=== PATIENT | male | born 1975 | race Caucasian/White ===

== ENCOUNTER → 2024-11-21 | Outpatient (CLI) | payer OTHER, SELFPAY ==
--- NOTE | 2024-11-21 06:48 | CT_ITS ---
PROCEDURE: CT CHEST WITH CONTRAST REASON FOR EXAM: Shortness of breath. Tracheal stenosis. TECHNIQUE: Contiguous axial scans of 2.5 mm slice thicknesses. Sagittal and coronal reconstruction images were obtained. One or more dose reduction techniques were used (e.g., automated exposure control, adjustment of mA and/or kv according to patient size, use of iterative reconstruction technique). IV contrast: Isovue 370. Amount injected: 99 mL. COMPARISON: No relevant prior FINDINGS: Hardware: None. Lymph nodes: No mediastinal hilar or axillary lymphadenopathy. Heart and Vasculature: Normal heart size. No pericardial effusion. Thoracic aorta and pulmonary arteries are unremarkable. Lungs and Airways: The lungs are normally expanded and clear. Pleura: No pleural effusion. No pneumothorax. Upper Abdomen: Visualized portions of the upper abdominal viscera are unremarkable. A lucent defect is seen in the portal vein. Bones: Bone windows are unremarkable. CT/Chest WITH Contrast IMPRESSION: 1. Unremarkable computed tomography of the chest. 2. Lucent portal vein defect most likely related to admixture of contrast mate rial and normal blood flow. Clinical correlation recommended. Ultrasound may be helpful for further evaluation if indicated. Reading Location: [facility]
[2024-11-21 07:15] LABS: CREATININE FINGERSTICK < 1.0 mg/dL (0.70-1.30); EGFR FINGERSTICK > 60.0000 mL/min (>60)
== END | disposition home or self-care (01) ==
LOC: CT 06:46
PROVIDERS: Referring Provider Otolaryngology; Visit Provider Otolaryngology
DX: R06.02 Shortness of breath (principal)
CPT/HCPCS: 71260; Q9967

== ENCOUNTER → 2025-01-24 | Outpatient (CLI) | payer OTHER, SELFPAY ==
[2025-01-24 10:42] LABS: Absolute Lymphocyte Count 2.93 X10^3/uL (0.83-4.51); Absolute Neutrophil Count 4.3 X10^3/uL (2.0-7.7); Basophil# 0.08 X10^3/uL; Eosinophil# 0.23 X10^3/uL; Eosinophils% 2.8 % (0-5); Hematocrit 49.9 % (40-54); Hemoglobin 17.7 g/dL (13.0-16.5); Lymphocyte # 2.93 X10^3/ul (0.83-4.51); Mean Corp Hgb Conc 35.5 g/dL (32-36); Mean Corpuscular Hgb 30.1 pg (27.0-32.0); Mean Corpuscular Volume 84.7 fL (80-94); Mean Platelet Vol. 10.3 fl (6.2-12.0); Monocyte# 0.57 X10^3/uL; NRBC Flagged by Analyzer 0 % (0-5); Neutrophil # 4.26 X10^3/uL (2.7-7.7); Neutrophil % 52.5 % (47-70); Platelet Count 280 K/mm3 (150-450); RBC Distribution Width CV 13.3 % (11.6-14.6); Red Blood Count 5.89 M/mm3 (4.6-6.2); White Blood Count 8.1 K/mm3 (4.4-11.0)
== END | disposition home or self-care (01) ==
LOC: PAVLAB 10:22
PROVIDERS: Referring Provider Internal Medicine Critical Care Medicine; Visit Provider Internal Medicine Critical Care Medicine
DX: R06.02 Shortness of breath (principal); R05.3 Chronic cough
CPT/HCPCS: 36415; 82785; 85025; 86003

== ENCOUNTER → 2025-02-07 | Outpatient (CLI) | payer OTHER, SELFPAY ==
[2025-02-07] MEDS: Methacholine Chloride 18 ml neb kit INHALATION (07:11)
[2025-02-07 08:00] VITALS: PULSE 104; PULSE 105; PULSE 107; PULSE 109; PULSE 110; PULSE 81; PULSE 96; PULSE 98; O2SAT 94; O2SAT 95; O2SAT 96
--- NOTE | 2025-02-08 12:11 | PCM.PSN.6M ---
PSN 6 Minute Walk Test 6 Minute Walk Test 6 Minute Walk Test: 6 Minute Walk Test PSN:6-Minute Walk Test Start: 02/07/25 08:05 Freq: Status: Active Protocol: [id number] Document 02/07/25 08:00 [facility] (Rec: 02/07/25 08:09 [facility] [id number]) 6 Minute Walk Test Date Performed 02/07/25 Time Performed 08:00 Height 5 ft 9 in Weight: 245 lb Weight in Pounds [address]: Juan Luis Assistive device Cane used: Pre-test Oxygen Delivery Room Air Method Pulse Ox (%) 96 Pulse Rate (60-100 98 beats/min) Dyspnea Frankie Scale ( 0.5 0-10) Exertion Frankie Scale 6 (6-20) 1st minute Oxygen Delivery Room Air Method Pulse Ox (%) 94 Pulse Rate (60-100 96 beats/min) 2nd minute Oxygen Delivery Room Air Method Pulse Ox (%) 94 Pulse Rate (60-100 104 H beats/min) 3rd minute Oxygen Delivery Room Air Method Pulse Ox (%) 94 Pulse Rate (60-100 105 H beats/min) 4th minute Oxygen Delivery Room Air Method Pulse Ox (%) 94 Pulse Rate (60-100 109 H beats/min) 5th minute Oxygen Delivery Room Air Method Pulse Ox (%) 95 Pulse Rate (60-100 107 H beats/min) 6th minute Oxygen Delivery Room Air Method Pulse Ox (%) 95 Pulse Rate (60-100 110 H beats/min) Dyspnea Frankie Scale ( 1 0-10) Exertion Frankie Scale 9 (6-20) Post-test Oxygen Delivery Room Air Method Pulse Ox (%) 96 Pulse Rate (60-100 81 beats/min) Full Laps Walked 27 Partial Lap, Number 0 of Tiles Walked Total Distance 1593 Walked (ft) Interpretation Interpretation: The patient ambulated 1593 feet over the course of 6 minutes beginning on room air without assistive devices. Pretesting oxygen saturation was noted to be 96% on room air. With ambulation, the carson oxygen saturation was 94%. There was no significant exertional oxygen desaturation. Recommendations Recommendations: There is no indication for the use of supplemental oxygen at this time.
== END | disposition home or self-care (01) ==
LOC: PSN 06:59
PROVIDERS: Referring Provider Internal Medicine Critical Care Medicine; Visit Provider Internal Medicine Critical Care Medicine
DX: R06.02 Shortness of breath (principal); R05.3 Chronic cough
CPT/HCPCS: 94070; 94618; 95070

== ENCOUNTER → 2025-02-13 | Outpatient (CLI) | payer OTHER, SELFPAY ==
--- NOTE | 2025-02-13 13:50 | ECHOCS_ITS ---
Reason For Study Reason For Study: Dyspnea/SOB Procedure This was a 2D Doppler, Color Flow transthoracic echocardiogram. The study was technically difficult. Contrast injection was performed. Exam performed in department. Left Ventricle Normal LV size. Left ventricular systolic function is normal. The estimated ejection fraction is 53 %. There is borderline global hypokinesis of the left ventricle. Right Ventricle Normal RV size. Normal systolic function. Atria Normal left atrium. Normal right atrium. Bubble contrast study negative for right to left interatrial shunt. Mitral Valve Normal mitral valve. Tricuspid Valve Normal tricuspid valve. Aortic Valve Trisinus/trileaflet aortic valve. Pulmonic Valve Normal pulmonic valve. Great Vessels Normal aortic root. The pulmonary artery is normal size. Inferior vena cava collapse with respiration. Pericardium/Pleural No pericardial effusion. Medication 22 gauge I.V. with prn adaptor inserted into left arm. Diluted definity 2ml given slow IV push to enhance endocardial definition. MMode/2D Measurements & Calculations LVIDd: 5.3 cm IVSd: 1.4 cm Ao root diam: 3.4 cm LVIDs: 3.4 cm LVPWd: 1.1 cm FS: 35.5 % LAV(MOD-bp): 40.7 ml LVAd ap4: 35.2 cm2 SV(MOD-sp4): 62.0 ml LAV(MOD-bp) Indexed: 18.0 ml/m2 LVLd ap4: 8.3 cm SI(MOD-sp4): 27.5 ml/m2 LAV(MOD-sp2): 46.8 ml EDV(MOD-sp4): 118.3 ml LAV(MOD-sp4): 34.5 ml EDV(sp4-el): 127.5 ml LVAs ap4: 23.0 cm2 LVLs ap4: 7.3 cm ESV(MOD-sp4): 56.2 ml ESV(sp4-el): 61.3 ml EF(MOD-sp4): 52.5 % EF(sp4-el): 51.9 % SV(sp4-el): 66.2 ml LA A4 area: 13.8 cm2 LA dimension(2D): 3.5 cm RA A4 area: 11.9 cm2 TAPSE: 2.1 cm Time Measurements MV dec time: 0.25 sec Doppler Measurements & Calculations MV E max sathya: 80.7 cm/sec Lat Peak E' Sathya: 14.1 cm/sec Med Peak E' Sathya: 9.9 cm/sec MV A max sathya: 80.0 cm/sec E/E' lat: 5.7 E/E' med: 8.2 MV E/A: 1.0 MV V2 max: 103.9 cm/sec MV P1/2t max sathya: 103.9 cm/sec Ao V2 max: 183.5 cm/sec MV max P.3 mmHg MV P1/2t: 81.6 msec Ao max P.5 mmHg MV V2 mean: 58.9 cm/sec MV dec slope: 372.6 cm/sec2 Ao V2 mean: 125.0 cm/sec MV mean P.6 mmHg MVA(P1/2t): 2.7 cm2 Ao mean P.2 mmHg MV V2 VTI: 26.4 cm Ao V2 VTI: 30.7 cm LV V1 max: 140.3 cm/sec PA V2 max: 121.4 cm/sec LV V1 max P.9 mmHg ECHO/Echo Complete W/ Contrast Interpretation Summary Normal LV size. Left ventricular systolic function is normal. The estimated ejection fraction is 53 %. Bubble contrast study negative for right to left interatrial shunt. Contrast injection was performed. Ordering Physician: Delgado Mcknight Referring Physician: Delgado Mcknight Performed By: Fco Erazo RCS
== END | disposition home or self-care (01) ==
LOC: CVS 13:48
PROVIDERS: Referring Provider Internal Medicine Critical Care Medicine; Visit Provider Internal Medicine Critical Care Medicine
DX: R06.02 Shortness of breath (principal)
CPT/HCPCS: 93306; Q9957; A4216; C8929